=== PATIENT | female | born 1960 | race Caucasian/White ===

== ENCOUNTER 2017-03-16 17:43 | Inpatient (IN) | payer OTHER ==
--- NOTE | ~2017-03-16 | PA ---
Unit #: [id number] #: [id number] Patient: KAUSHAL FRASER [id number] [facility] [address] [place] [address] [id number] I MR#: [id number] NAME: KAUSHAL FRASER ROOM: P130 Age: 56 Sex: F Admission Date: 03/16/2017 : 1960 Date of Assessment: 03/17/2017 Attending Physician: John Woodall M.D. Admitting Physician: John Woodall M.D. Primary Care Physician: Generic Doctor Not In System PSYCHIATRIC ASSESSMENT DATE OF SERVICE 03/17/2017. IDENTIFYING DATA Ms. Fraser is a 56-year-old white female, who is a resident of [place], [place], and was self-referred to the hospital on a voluntary basis. CHIEF COMPLAINT "My is chronically ill and has been in the hospital for the past month." HISTORY OF PRESENT ILLNESS Ms. Fraser is a 56-year-old white female with history of mood disorder, who presented to the hospital reporting increasing depression, particularly with stressor of her being chronically ill and being in the hospital for a month, and the patient states that her has a staph infection and that her will have to live in a medically assisted facility for an undetermined amount of time and also stated that it has taken an emotional toll, and she has been overwhelmed and that she is also battling health issues of her own as well and that she is a diabetic and has fibromyalgia, chronic pain and that she has been feeling so overwhelmed, that she has began to over take her pain medications to deal with stress and that she has been overtaking Neurontin for the past several months and reports that she is beginning to feel guilty for overtaking the pain medications that she is only supposed to have 400 to 800 mg a day and that she is recovering addict, even though she has history of abusing cocaine and alcohol in the past. She also mentions that she has not begun to use cocaine or alcohol, but that she has been having craving and that she feels and that she does not want to live and that she has no specific plan as to how she would hurt herself. However, she does endorse increasing depression, anxiety, restlessness, feelings of hopelessness and helplessness, and suicidal ideation and as such, recommendation for inpatient level of care for safety and stabilization was made, and the patient was transferred to us. SUBSTANCE ABUSE HISTORY The patient reports that she is an alcoholic and chronic cocaine user and has been sober since 2005. PAST PSYCHIATRIC HISTORY The patient has not had any prior inpatient or outpatient psychiatric treatment. Review of the medical records indicate currently she is not Unit #: [id number] #: [id number] Patient: KAUSHAL FRASER active in any treatment program, is not seeing a psychiatrist, and is not taking any psychotropic medications. PAST MEDICAL HISTORY Fibromyalgia, diabetes mellitus. ALLERGIES No known medication allergies. CURRENT MEDICATIONS Lantus, metformin, Neurontin, Lisinopril. PERSONAL AND SOCIAL HISTORY A 56-year-old white female, who reports that she is and lives at home with her , though she reports that her is chronically ill and has been in the hospital for the past month. MENTAL STATUS EXAMINATION Middle-aged white female, who was casually dressed with fair personal hygiene, appears to be in no acute distress or discomfort. She was awake and alert on interaction with intact orientation to time, place, and person. Her mood was anxious and depressed with a congruent affect. Her speech was slow and goal directed. She reports having suicidal ideations, but denies any homicidal ideations, and also denies any auditory or visual hallucinations. Her insight and judgment remain significantly impaired. DIAGNOSTIC IMPRESSION Psychiatric: Major depressive disorder, recurrent, moderate, without psychotic features. Medical: Diabetes mellitus, fibromyalgia. Stressors: Moderate psychosocial stressors. TREATMENT PLAN 1. The patient has presented with a history of mood disorder and has been decompensating and will need inpatient hospitalization for safety and stabilization. We will start her back on her home medications. We will adjust the medications and monitor response. 2. Supportive therapy was provided to the patient. 3. Safe, structured, and nourishing environment will be provided. ESTIMATED LENGTH OF STAY 4 to 5 days. ABILITY TO HELP SELF Limited. WILLINGNESS TO HELP SELF The patient appears to be willing to help self. STRENGTHS 1. Communicative. 2. Cooperative. PROBLEMS 1. Chronic dysphoric symptoms. 2. Chronic chemical dependency. 3. Poor social support system. DISCHARGE CRITERIA Unit #: [id number] #: [id number] Patient: KAUSHAL FRASER This will be contingent upon the patient's ability to show resolution of her depression and anxiety and her ability to stay safe to herself, particularly after discharge from the hospital. Dictated by... Terra George/farhad TD: 03/17/2017 07:06 JOB #: [id number] PSYCHIATRIC ASSESSMENT Page 1 of 1 X John Woodall MD X PSYCHIATRIC ASSESSMENT
--- NOTE | ~2017-03-16 | HP ---
Unit #: [id number] #: [id number] Patient: SADE FULLER [id number] [place] [address] [id number] MR#: [id number] NAME: SADE FULLER ROOM: 63 Age: 56 Sex: F Admission Date: 03/16/2017 : 1960 Attending Physician: John Woodall M.D. Admitting Physician: John Woodall M.D. Primary Care Physician: Generic Doctor Not In System HISTORY AND PHYSICAL HISTORY OF PRESENT ILLNESS Sade is a 56 year old admitted to [address] [place] [address] with depression and increased anxiety. PAST MEDICAL HISTORY 1. Obesity. 2. Diabetes mellitus. 3. COPD. PAST SURGICAL HISTORY x2. ALLERGIES Prednisone. SOCIAL HISTORY Smokes 1 pack per day. Denies alcohol and illicit drug use. FAMILY HISTORY Medically noncontributory. REVIEW OF SYSTEMS CONSTITUTIONAL: No fever or chills. HEENT: Denies any sore throat, ear pain or runny nose. CARDIOVASCULAR: Denies chest pain, irregular heart rhythm or palpitations. CHEST: Denies shortness of breath or cough. No hemoptysis. GASTROINTESTINAL: Denies nausea, vomiting, diarrhea or chronic constipation. ENDOCRINE: Denies history of increased thirst or urination. No recent significant weight loss or gain. GENITOURINARY: Denies dysuria, frequency, or hematuria. SKIN: Denies any rashes. HEMATOLOGIC: Denies history of increased bleeding or bruising. MUSCULOSKELETAL: Denies any hot, swollen joints. No generalized muscle pain. NEUROLOGIC: Denies problems with vision or speech. No frequent, severe headaches. No numbness, tingling or weakness in any extremities. Denies loss of bladder or bowel control. CURRENT MEDICATIONS 1. Effexor XR 75 mg q.h.s. 2. Motrin 600 mg b.i.d. p.r.n. 3. Milk of Magnesia p.r.n. Unit #: [id number] #: [id number] Patient: SADE FULLER 4. Maalox p.r.n. 5. Tylenol p.r.n. 6. Levemir 54 units q.h.s. 7. Neurontin 800 mg q.i.d. 8. Glucophage 1000 mg b.i.d. 9. Nicotine patch 21 mg daily. 10. Lisinopril 2.5 mg daily. PHYSICAL EXAMINATION GENERAL: Alert, well-nourished, in no apparent distress. VITAL SIGNS: Blood pressure 150/72, heart rate 80, respirations 16, temperature 98.6. WEIGHT: 200. HEIGHT: 5 feet 6 inches. SKIN: Warm and dry without rash or lesion. HEENT: Normocephalic. TMs not viewed. Oral and nasal passages clear. Conjunctivae clear. PERRLA. EOMs intact. NECK: Supple without lymphadenopathy or thyromegaly. HEART: Regular rate and rhythm without murmur. LUNGS: Clear. ABDOMEN: Soft, nontender. : Not done. EXTREMITIES: No evidence of cyanosis, clubbing or edema. Moves all without focal deficit. NEUROLOGICAL: Grossly within normal limits. Cranial Nerves: II: Visual mendez are intact. III, IV AND : Extraocular movements are intact. Pupils are equal, round and reactive to light. V: Facial sensation is grossly normal. VII: Facial movements and expression are normal. VIII: Auditory acuity grossly intact. IX, X: Uvula is midline. Phonation is normal. XI: Patient shrugs shoulders and turns head normally. XII: Tongue protrudes in the midline. Sensory and Motor Function: Sensory and motor sensation is grossly normal. Motor: moves all extremities well. Coordination: Gait is normal. Deep Tendon Reflexes: Intact. IMPRESSION Psychiatric admission. RECOMMENDATIONS PSYCHIATRIC: Per psychiatrist. MEDICAL: See no contraindications to participate in facility's activities. MEDICAL PROGNOSIS Good. MEDICAL CONDITION Stable. Dictated by... Paola Darnell P.A.-C. for [facility] Layne/[facility] Unit #: [id number] #: [id number] Patient: SADE FULLER TD: 03/17/2017 19:55 JOB #: [id number] HISTORY AND PHYSICAL Page 1 of 1 X Paola Darnell HISTORY AND PHYSICAL
--- NOTE | ~2017-03-16 | DS ---
Unit #: [id number] #: [id number] [facility] [id number] [facility] [address] [place] [address] [id number] MR#: [id number] NAME: KAUSHAL FULLER ROOM: [facility] Age: 56 Sex: F Admission Date: 03/16/2017 : 1960 Discharge Date: 03/19/2017 Attending Physician: John Woodall M.D. Primary Care Physician: Generic Doctor Not In System DISCHARGE SUMMARY IDENTIFYING DATA Ms. FULLER is a 56-year-old white female, who was self-referred to the hospital. DISCHARGE DIAGNOSES Psychiatric: Major depressive disorder, recurrent, moderate, without psychotic features; alcohol dependence, moderate; crack cocaine abuse, moderate. Medical: Diabetes mellitus and hypertension. Stressors: Mild psychosocial stressors. HISTORY OF PRESENT ILLNESS Please see initial psychiatric evaluation for details. PAST PSYCHIATRIC HISTORY Please see initial psychiatric evaluation for details. PAST MEDICAL HISTORY Please see initial psychiatric evaluation for details. HOSPITAL COURSE [facility] and was oriented to the hospital environment. Routine p.r.n. medications were initiated, and she was started back on her home medications and Effexor XR as an antidepressant was initiated and she was closely monitored. She was taking the medications regularly and was tolerating them fairly well and was able to show a decent and therapeutic response and as such, it was decided that she will be discharged home. DISCHARGE MEDICATIONS Effexor XR 75 mg a day for depression. DISCHARGE CONDITION Stable. PROGNOSIS Fair. Dictated by... Terra George/farhad Unit #: [id number] #: [id number] Patient: KAUSHAL FULLER TD: 03/19/2017 07:20 JOB #: [id number] DISCHARGE SUMMARY Page 1 of 1 X John Woodall MD X DISCHARGE SUMMARY
--- NOTE | ~2017-03-16 | PN ---
Unit #: [id number] #: [id number] Patient: KAUSHAL FRASER [id number] [facility] [address] [place] [address] [id number] MR#: [id number] NAME: KAUSHAL FRASER ROOM: [facility] Age: 56 Sex: F Admission Date: 03/16/2017 : 1960 Attending Physician: John Woodall M.D. Admitting Physician: John Woodall M.D. Primary Care Physician: Generic Doctor Not In System [facility] PROGRESS NOTES DATE March 18, 2017 DISCUSSION Ms. Fraser is a 56-year-old white female, who was seen today and chart was reviewed and the case was discussed with the staff. She has been anxious, withdrawn, depressed, and seclusive to herself, and reports persistent depressive symptoms with feelings of hopelessness. Meanwhile, she has been taking the medications and tolerating them fairly well. MENTAL STATUS EXAMINATION Middle-aged white female, who was casually dressed with fair personal hygiene and appears to be in no acute distress or discomfort. The patient was awake and alert with impaired attention and concentration. Her mood was anxious with a congruent affect. The patient denies any suicidal or homicidal ideations. Her insight and judgment remain slightly impaired. TREATMENT PLAN 1. We will continue her on her current medications and treatment protocol, and will monitor her response to the medications, and make further adjustments as needed. 2. We will continue to followup. Dictated by... Terra George/boby TD: 03/18/2017 12:37 JOB #: [id number] Unit #: [id number] #: [id number] Patient: KAUSHAL FRASER [facility] PROGRESS NOTES Page 1 of 1 X John Woodall MD PROGRESS NOTE
[~2017-03-16 17:43] MED LIST: BACTRIM DS TABL1 TA1 PO; DICLOFENAC PO; HUMALOG100 U/M1 SUBQ; HUMALOG100 U/ML SQ; HYDROXYZINE HCL25 M1 PO; LORTAB 5/500 TA1 TA1 PO; NEURONTIN800 MG PO; PAXIL PO; PHENERGAN12.5 MG PO; ULTRAM PO; VIBRAMYCIN100 M1 PO
[2017-03-17 12:30] LABS: BASOPHIL# 0.1 X10e3 (0-0.3); BASOPHIL% 0.8 % (0-2.5); EOSINOPHIL# 0.1 X10e3 (0-0.7); EOSINOPHIL% 1.1 % (0.0-7.0); HEMATOCRIT 46.4 % (35.0-45.0); HEMOGLOBIN 15.2 gm/dL (12.0-16.0); LYMPHOCYTE# 0.9 X10e3 (1.0-3.5); LYMPHOCYTE% 12.1 % (17.0-45.0); MEAN CELL VOLUME 93.8 FL (83-96); MEAN CORPUSCULAR HEMOGLOBIN 30.7 PG (28-34); MEAN CORPUSCULAR HGB CONC 32.7 g/dL (30-36); MEAN PLATELET VOLUME 9.6 FL (6.5-11.5); MONOCYTE# 0.3 X10e3 (0-1.0); MONOCYTE% 4.5 % (3.0-12.0); NEUTROPHIL# 5.8 X10e3 (1.5-7.1); NEUTROPHIL% 81.5 % (40-75); PLATELET COUNT 265 X10e3 (140-420); RED BLOOD COUNT 4.95 X10e (3.90-5.30); RED CELL DISTRIBUTION WIDTH 13.4 % (11.0-15.5); WHITE BLOOD COUNT 7.1 X10e3 (4.0-10.5)
[2017-03-17 12:31] LABS: DIFF IND NO
[2017-03-17 12:35] LABS: ALBUMIN SERUM 3.6 g/dL (3.5-5.0); BILIRUBIN,TOTAL 0.3 mg/dL (0.2-2.0); BUN/CREATININE RATIO 11.25; CALCIUM SERUM 9.3 mg/dL (8.4-10.2); CREATININE SERUM 0.8 mg/dL (0.6-1.4); GLOM FILT RATE Estimated 81.3 mL/min (>60); POTASSIUM 4.8 mmol/L (3.5-5.1); PROTEIN TOTAL SERUM 6.4 g/dL (6.0-8.3)
[2017-03-19 09:44] LABS: URINE APPEARANCE CLEAR; URINE BILIRUBIN NEG (NEG); URINE BLOOD NEG (NEG); URINE COLOR YELLOW; URINE GLUCOSE NEG (NEG); URINE KETONE NEG (NEG); URINE LEUKOCYTE ESTERASE NEG (NEG); URINE NITRATE NEG (NEG); URINE PROTEIN 2+ (NEG); URINE SPECIFIC GRAVITY 1.008 (1.003-1.035); URINE UROBILINOGEN 0.2 MG/DL (NEG)
[2017-03-19 09:52] LABS: URBCS1 AUWI 0-2 /[HPF] (0-2); URINE BACTERIA AUWI NEG (NEGATIVE); URINE SQUAMOUS EPITHELIAL CELL NONE SEEN /[HPF]; UWBCS1 AUWI 0-2 (0-5)
[2017-03-19 11:32] LABS: AMPHETAMINE NEG (NEG); BARBITURATES NEG (NEG); BENZODIAZEPINES NEG (NEG); COCAINE NEG (NEG); MARIJUANA NEG (NEG); OPIATES NEG (NEG); TRICYCLIC ANTIDEPRESSANTS NEG (NEG); U METHADONE NEG (NEG)
== END 2017-03-19 10:30 | disposition home or self-care (01) | DRG 885 ==
LOC: P2L 20:22 → P1S 20:22 → P2L 03-17 13:46
PROVIDERS: Psychiatry & Neurology Psychiatry
DX: F33.1 Major depressive disorder, recurrent, moderate (principal); R45.851 Suicidal ideations; F14.20 Cocaine dependence, uncomplicated; E11.9 Type 2 diabetes mellitus without complications; Z79.4 Long term (current) use of insulin; M79.7 Fibromyalgia; F41.9 Anxiety disorder, unspecified; J44.9 Chronic obstructive pulmonary disease, unspecified; E66.9 Obesity, unspecified; Z88.8 Allergy status to other drugs, medicaments and biological substances; F17.210 Nicotine dependence, cigarettes, uncomplicated; F10.20 Alcohol dependence, uncomplicated; I10 Essential (primary) hypertension; Z68.32 Body mass index [BMI] 32.0-32.9, adult
CPT/HCPCS: 80053; 80307; 81003; 82947; 85025